=== PATIENT | male | born 1950 | race Caucasian/White ===

== ENCOUNTER 2024-01-28 08:29 | Inpatient (IN) | payer OTHER ==
[2024-01-28] VITALS (8 sets, daily range): BP systolic 114–147; BP diastolic 65–79; PULSE 57–79; TEMP 97.7–98
[~2024-01-28] VITALS: Ht 177.8 cm; Wt 85.9 kg
[~2024-01-28 08:29] MED LIST: ALDACTONE 25MG25 M1 PO; ASPIRIN E.C. 8181 MG PO; CEPHALEXIN500 M1 PO; DIOVAN 40MG40 MG PO; JARDIANCE25 PO; LASIX 20MG TABL20 MG PO; LIPITOR 80MG80 MG PO; MULTIPLE VITAMI1 TA5 PO; NITROSTAT0.4 MG/TAB SL; PLAVIX 75MG TAB75 MG PO; TOPROL XL 25MG25 MG PO
--- NOTE | 2024-01-28 09:00 | NUR ---
PATIENT ADMITTED FOR SOTALOL INITIATION. PATIENT ALERT AND ORIENTED X4. PATIENT DENIES CHEST PAIN, SOA OR DIZZINESS AT THIS TIME. ON ROOM AIR. NEW IV INITIATED TO RIGHT WRIST.PATIENT HAS BILATERAL UPPER EXTREMITY BRUISING AND SOME BLE BRUISING. PATIENT AT BEDSIDE. CALL LIGHT WITHIN REACH. BED AT LOWEST POSITION.
[2024-01-28] MEDS ORDERED: NS Flush 10 ML SYRINGE PRN ICA (09:15)
[2024-01-28] MEDS ORDERED: Sotalol 80 MG TAB PO BID PO SCH (09:15)
[2024-01-28 10:06] LABS: BASO % 0.4 % (0.0-2.0); EOS # 0.6 K/mm3 (0.0-0.7); EOS % 7.6 % (0.0-4.0); GRAN # 5.7 K/mm3 (1.4-6.5); GRAN % 71.2 % (42.2-75.2); HEMOGLOBIN 14.4 g/dl (13.5-18.0); LYMPH # 0.9 K/mm3 (1.2-3.4); LYMPH % 11.7 % (20.0-51.0); MEAN CELL VOLUME 93 fl (80.0-100.0); MEAN CORPUSCULAR HEMOGLOBIN 31 pg (27-31); MEAN CORPUSCULAR HGB CONC 34 g/dl (33.0-37.0); MEAN PLATELET VOLUME 10.6 fl (7.4-10.4); MONO # 0.7 K/mm3 (0.1-0.6); MONO % 8.7 % (1.7-9.3); PLATELET COUNT 169 K/mm3 (130-400); RED BLOOD COUNT 4.63 M/mm3 (4.20-5.60); REDCELL DISTRIBUTION WIDTH-CV 12.9 % (11.5-14.5)
[2024-01-28 10:14] LABS: INR 1.1 (0.8-3.0); PROTHROMBIN TIME 11.6 SECONDS (9.7-12.8)
[2024-01-28 10:29] LABS: ALBUMIN 3.6 g/dL (3.4-4.8); BILIRUBIN,TOTAL 0.6 mg/dL (0.2-1.2); CALCIUM 8.9 mg/dL (8.4-10.2); CREATININE, serum 1.23 mg/dL (0.72-1.25); POTASSIUM 4.5 mEq/L (3.5-4.5); TOTAL PROTEIN 6.9 g/dl (6.2-8.1)
[2024-01-28] MEDS ORDERED: Bisacodyl 5 MG TAB PO PRN (10:30)
[2024-01-28] MEDS ORDERED: Acetaminophen 325 MG TAB PO PRN (10:30)
[2024-01-28] MEDS ORDERED: Magnes Hydrox (MOM) 80 MG/ML 30 ML CUP PO PRN (10:30)
[2024-01-28] MEDS ORDERED: Ondansetron 4 MG/2 ML VIAL IV PRN (10:30)
[2024-01-28] MEDS ORDERED: Furosemide 20 MG TAB PO PRN (10:45)
[2024-01-28] MEDS ORDERED: Atorvastatin 80 MG TAB PO SCH (21:00)
[2024-01-28] MEDS ORDERED: Melatonin 3 MG TAB PO PRN (21:00)
[2024-01-28] MEDS ORDERED: SUBS TO LOSARTAN PO SCH (21:00)
[2024-01-28] MEDS ORDERED: NS Flush 10 ML SYRINGE BID ICA SCH (21:00)
[2024-01-28] MEDS ORDERED: VALSARTAN 40 MG PO SCH (21:00)
--- NOTE | 2024-01-28 21:57 | NUR ---
Patient playing solitaire on his computer, assessed at this time, see shift assessment, A/Ox4, still with INT infusing well on right wrist, denies further needs, call light and personal items within reach, will continue to monitor.
--- NOTE | 2024-01-28 22:43 | NUR ---
Received a call from the ICU that patient's heart rate went down to 40's, informed Dr. Hernandez regarding this, no new orders received at this time.
[2024-01-29] VITALS (12 sets, daily range): BP systolic 99–147; BP diastolic 55–75; PULSE 56–65; TEMP 97.5–98.1
[2024-01-29 06:21] LABS: BASO % 0.5 % (0.0-2.0); EOS # 0.8 K/mm3 (0.0-0.7); EOS % 9.9 % (0.0-4.0); GRAN # 5.2 K/mm3 (1.4-6.5); GRAN % 62.6 % (42.2-75.2); HEMATOCRIT 43.1 % (42.0-52.0); HEMOGLOBIN 14.7 g/dl (13.5-18.0); LYMPH # 1.5 K/mm3 (1.2-3.4); LYMPH % 18.2 % (20.0-51.0); MEAN CELL VOLUME 92 fl (80.0-100.0); MEAN CORPUSCULAR HEMOGLOBIN 31 pg (27-31); MEAN CORPUSCULAR HGB CONC 34 g/dl (33.0-37.0); MEAN PLATELET VOLUME 10.9 fl (7.4-10.4); MONO # 0.7 K/mm3 (0.1-0.6); MONO % 8.7 % (1.7-9.3); PLATELET COUNT 172 K/mm3 (130-400); RED BLOOD COUNT 4.69 M/mm3 (4.20-5.60); REDCELL DISTRIBUTION WIDTH-CV 12.8 % (11.5-14.5)
[2024-01-29 06:27] LABS: CALCIUM 9.6 mg/dL (8.4-10.2); CREATININE, serum 1.24 mg/dL (0.72-1.25); POTASSIUM 4.2 mEq/L (3.5-4.5)
--- NOTE | 2024-01-29 08:50 | NUR ---
PATIENT ALERT AND ORIENTED X4. PATIENT DENIES PAIN, SOA, DIZZINESS AT THIS TIME.ON ROOM AIR. TELEMETRY PLACED, RATE ON THE LOW 60'S. PATIENT DENIES CONCERNS AT THIS TIME. CALL LIGHT WITHIN REACH. BED AT LOWEST POSITION.
[2024-01-29] MEDS ORDERED: Losartan 25 MG TAB PO SCH (09:00)
[2024-01-29] MEDS ORDERED: Clopidogrel 75 MG TAB PO SCH (09:00)
[2024-01-29] MEDS ORDERED: Spironolactone 12.5 MG TAB PO SCH (09:00)
[2024-01-29] MEDS ORDERED: Empagliflozin 25 MG TAB PO SCH (09:00)
[2024-01-29] MEDS ORDERED: Multivitamin TAB PO SCH (09:00)
--- NOTE | 2024-01-29 10:06 | NUR ---
Initial visit; Patient doing well on Sotalol trial, he says. Hem Marker pleased to see him using his Lap Top and seemingly content. He thanked Hem Marker for lookingin on him and offering God's blessings.
--- NOTE | 2024-01-29 14:17 | NUR ---
Personal Health Coach met with patient to discuss discharge planning. Patient lives in [place] with his , Leslie (ph#[phone]) and sees Dr. Packer for primary care. [facility] in [place]. Patient does not use any DME and is independent with [facility]. Patient does not have DPOA-HC and was not interested in completing one at this time. Patient plans to return home at time of discharge. Discharge Plan: Home
--- NOTE | 2024-01-29 21:58 | NUR ---
PATIENT RESTING IN BED ON LAPTOP. DENIES ANY CHEST DISCOMFORT, SHORTNESS OF BREATH, PALPITATIONS. HE DID HAVE SOME QUESTIONS ABOUT HIS SOTALOL WHICH THIS RN ANSWERED TO HIS SATISFACTION. CALL LIGHT WITHIN REACH. BED IS LOCKED AND IN LOW POSITION.
[2024-01-30 00:39] VITALS: BP_SYST 115
[2024-01-30 03:36] VITALS: BP 130/68; PULSE 69; TEMP 97.8
[2024-01-30 04:15] VITALS: BP_SYST 130
[2024-01-30 06:43] LABS: BASO # 0.1 K/mm3 (0.0-0.2); BASO % 0.8 % (0.0-2.0); EOS # 0.8 K/mm3 (0.0-0.7); EOS % 9.4 % (0.0-4.0); GRAN # 4.9 K/mm3 (1.4-6.5); GRAN % 61.7 % (42.2-75.2); HEMATOCRIT 41.6 % (42.0-52.0); HEMOGLOBIN 14.5 g/dl (13.5-18.0); LYMPH # 1.4 K/mm3 (1.2-3.4); MEAN CELL VOLUME 90 fl (80.0-100.0); MEAN CORPUSCULAR HEMOGLOBIN 31 pg (27-31); MEAN CORPUSCULAR HGB CONC 35 g/dl (33.0-37.0); MEAN PLATELET VOLUME 10.9 fl (7.4-10.4); MONO # 0.8 K/mm3 (0.1-0.6); MONO % 9.7 % (1.7-9.3); PLATELET COUNT 162 K/mm3 (130-400); RED BLOOD COUNT 4.62 M/mm3 (4.20-5.60); REDCELL DISTRIBUTION WIDTH-CV 12.7 % (11.5-14.5)
[2024-01-30 06:50] LABS: CALCIUM 9.3 mg/dL (8.4-10.2); CREATININE, serum 1.18 mg/dL (0.72-1.25); POTASSIUM 4.2 mEq/L (3.5-4.5)
[2024-01-30 08:00] VITALS: BP 110/68; PULSE 71; TEMP 97.7
[2024-01-30 09:00] VITALS: BP_SYST 110
--- NOTE | 2024-01-30 09:04 | NUR ---
cardilogy paged, patient qtc this am [phone].
--- NOTE | 2024-01-30 10:15 | NUR ---
per cardiology ok for this rn to give patient am dose of sotalol
[2024-01-30] MEDS ORDERED: BETAPACE 80MG80 MG PO (11:08)
[2024-01-30 11:42] VITALS: BP 93/62; PULSE 60; TEMP 97.7
--- NOTE | 2024-01-30 12:20 | NUR ---
patient iv removed, tele removed.patient taken to er entrance where he left in stable conditoin with his
== END 2024-01-30 12:25 | disposition home or self-care (01) | DRG 309 ==
LOC: MEDICAL 08:29
PROVIDERS: ADMIT Internal Medicine Cardiovascular Disease
DX: I47.10 Supraventricular tachycardia, unspecified (principal); I50.22 Chronic systolic (congestive) heart failure; I25.5 Ischemic cardiomyopathy; I44.7 Left bundle-branch block, unspecified; I71.40 Abdominal aortic aneurysm, without rupture, unspecified; I34.0 Nonrheumatic mitral (valve) insufficiency; E78.5 Hyperlipidemia, unspecified; Z95.810 Presence of automatic (implantable) cardiac defibrillator; Z79.82 Long term (current) use of aspirin; Z79.899 Other long term (current) drug therapy; Z79.02 Long term (current) use of antithrombotics/antiplatelets; Z87.891 Personal history of nicotine dependence
CPT/HCPCS: A9270